=== PATIENT | male | born 1985 | race American Indian/Alaskan Native ===

== ENCOUNTER 2017-09-01 18:53 | Emergency (ER) | payer SELFPAY ==
[2017-09-02] MEDS ORDERED: TORADOL IM ONE (02:04)
[2017-09-02 04:28] VITALS: BP 112/72
[2017-09-02] MEDS ORDERED: XYLOCAINE 1% MPF 5 mL INFILTRATI ONE (04:52)
[2017-09-02] MEDS ORDERED: ROCEPHIN IM ONE (04:52)
[2017-09-02] MEDS ORDERED: ZITHROMAX PO ONE (04:52)
--- NOTE | 2017-09-02 05:08 | Emergency Department Report ---
ED Male HPI - General Chief complaint: Urogenital-Male Stated complaint: CHECK STD Time Seen by Provider: 09/02/17 04:46 Source: patient Mode of arrival: Ambulatory Limitations: No Limitations - History of Present Illness MD Complaint: penile discharge (white) -: Sudden, days(s) (1) Location: penis, right testicle, left testicle Severity: moderate Severity scale (0 -10): 5 Quality: aching Consistency: constant Worsens with: none new sexual partner discharge - Related Data Previous Rx's Medication Instructions Recorded Last Taken Type Acetaminophen/Codeine [Tylenol #3] 1 tab PO Q6H PRN #15 tab 04/12/16 Unknown Rx Gentamicin 0.3% Ophth Soln 2 drops OP Q4H #1 bottle 04/12/16 Unknown Rx Allergies Allergy/AdvReac Type Severity Reaction Status Date / Time cheese AdvReac Nausea Verified 09/01/17 19:28 ED Review of Systems ROS: Stated complaint: CHECK STD Other details as noted in HPI ED Past Medical Hx - Past Medical History Previous Medical History?: Yes Additional medical history: gonorrhea - Surgical History Past Surgical History?: No - Social History Smoking Status: Current Every Day Smoker Substance Use Type: None - Medications Home Medications: Home Medications Medication Instructions Recorded Confirmed Last Taken Type Acetaminophen/Codeine [Tylenol #3] 1 tab PO Q6H PRN #15 tab 04/12/16 Unknown Rx Gentamicin 0.3% Ophth Soln 2 drops OP Q4H #1 bottle 04/12/16 Unknown Rx ED Physical Exam - General Limitations: No Limitations General appearance: alert, in no apparent distress - Head Head exam: Present: atraumatic, normocephalic - Eye Eye exam: Present: normal appearance, EOMI - ENT ENT exam: Present: mucous membranes moist - Neck Neck exam: Present: normal inspection - Respiratory Respiratory exam: Present: normal lung sounds bilaterally. Absent: respiratory distress - Cardiovascular Cardiovascular Exam: Present: regular rate, normal rhythm. Absent: systolic murmur, diastolic murmur, rubs, gallop - GI/Abdominal GI/Abdominal exam: Present: soft, normal bowel sounds - Rectal Rectal exam: Present: deferred - exam: Present: normal inspection, testicular tenderness (bilateral), circumcision. Absent: urethral discharge, scrotal swelling, vertical testicular lie - Extremities Exam Extremities exam: Present: normal inspection - Back Exam Back exam: Present: normal inspection - Neurological Exam Neurological exam: Present: alert, oriented X3 - Psychiatric Psychiatric exam: Present: normal affect, normal mood - Skin Skin exam: Present: warm, dry, intact, normal color. Absent: rash ED Course Vital Signs 09/01/17 09/01/17 09/02/17 19:24 19:28 02:57 Temperature 98.2 F 98.2 F 97.4 F L Pulse Rate 68 66 63 Respiratory 18 18 18 Rate Blood Pressure 122/63 122/63 122/72 O2 Sat by Pulse 100 100 100 Oximetry 09/02/17 09/02/17 09/02/17 02:58 04:17 04:21 Temperature 97.4 F L Pulse Rate 62 58 L 61 Respiratory 18 18 10 L Rate Blood Pressure 122/72 112/72 O2 Sat by Pulse 100 100 100 Oximetry 09/02/17 04:28 Temperature 97.7 F Pulse Rate Respiratory 18 Rate Blood Pressure O2 Sat by Pulse 99 Oximetry Critical care attestation.: If time is entered above; I have spent that time in minutes in the direct care of this critically ill patient, excluding procedure time. ED Disposition Clinical Impression: Penile discharge Disposition: DC-01 TO HOME OR SELFCARE Is pt being admited?: No Does the pt Need Aspirin: No Condition: Stable Instructions: Sexually Transmitted Diseases (ED), Safe Sex (ED) Referrals: PRIMARY CARE, [Primary Care Provider] - 3-5 Days Time of Disposition: 04:57
== END 2017-09-02 05:47 | disposition home or self-care (01) ==
LOC: ED 18:53
DX: R36.9 Urethral discharge, unspecified (principal); F17.210 Nicotine dependence, cigarettes, uncomplicated; Z91.018 Allergy to other foods
CPT/HCPCS: 96372; 99282; J0696; J1885